=== PATIENT | male | born 1980 | race Caucasian/White ===

== ENCOUNTER → 2018-06-29 | Outpatient (CLI) | payer BC ==
--- NOTE | 2018-06-30 19:15 | PCVCIMAG ---
APPROVED REPORT Study performed: 06/29/2018 13:43:59 Exam: Stress Echocardiogram Indication: Dyspnea, palpitations, fatigue Patient Location: Echo lab Stress Nurse: Roberta Covington RN Status: routine Ht: 5 ft 10 in HR: 92 bpm BP: 128/70 mmHg Rhythm: NSR Procedure The patient underwent an Exercise Stress Test using the Eric Protocol. Blood pressure, heart rate, and EKG were monitored. An Echocardiogram was performed by diploma pharmacy technician in four stages in quad fashion. At peak stress, four selected images were obtained and placed side by side with resting images for comparison. Stress Test Details Stress Test: Exercise stress testing was performed using a Eric protocol. HR Resting HR: 92 bpmMax Heart Rate (APMHR): 180 bpm Max HR Achieved: 181 bpmTarget HR (85% APMHR): 153 bpm % of APMHR: 100 Recovery HR: 115 bpm HR response to stress: Normal HR response to stress BP Resting BP: 128/70 mmHg Max BP: 176/80 mmHg Recovery BP: 128/62 mmHg BP response to stress: Normal blood pressure response to stress. ECG Resting ECG: Sinus Rhythm, incomplete right bundle branch block Stress ECG: Sinus Rhythm ST Change: Normal Maximum ST Deviation: 0 mm Arrhythmia: PVCs and one 6 beat simona of V-tachycardia Recovery ECG: Sinus Rhythm Recovery ST Change: Normal Recovery ST Deviation: 0 mm Recovery Arrhythmia: None Clinical Reason for Termination: Maximal effort, Dyspnea Stress Symptoms: Dyspnea, palpitations Exercise duration: 12 min sec Highest Stage Achieved: Stage 4: 4.2 mph at 16% grade. Exercise capacity: 13.4 METs Overall Exercise Capacity for Age: Good Scale: Active Angina Score: None Stress ECG Conclusion Clinical: Non-ischemic ECG: Non-ischemic Melendez Treadmill Score is 12.0 which is Low risk. Pre-Stress Echo The resting Echocardiogram showed normal left ventricular contractility with an estimated Ejection Fraction of about >55%. Normal wall motion in all segments on baseline images. Post-Stress Echo The stress Echocardiogram showed normal left ventricular contractility with an estimated Ejection Fraction of about 65%. Normal augmentation of wall motion in all segments on post stress images. Clinical No clinical evidence for ischemia. Conclusion Clinical Response: Non-ischemic Exercise Capacity: Superior Stress ECG Response: Non-ischemic Stress Echo Images: Non-ischemic The left ventricle is normal in size and wall thickness in both the rest and stress images. Normal stress echocardiogram with maximal exercise stress. 6 beat simona of ventricular tachycardia with excersise Consider suppressive therapy with beta blockade Consider MRI imaging of the heart for right ventricular dysplasia Other Information Study Quality: Adequate <Conclusion> The left ventricle is normal in size and wall thickness in both the rest and stress images. Normal stress echocardiogram with maximal exercise stress. 6 beat simona of ventricular tachycardia with excersise Consider suppressive therapy with beta blockade Consider MRI imaging of the heart for right ventricular dysplasia
== END | disposition home or self-care (01) ==
LOC: PCVCIMAG 13:56
PROVIDERS: ATTEND Podiatrist Foot & Ankle Surgery
DX: R00.2 Palpitations (principal); R53.83 Other fatigue; R06.09 Other forms of dyspnea
CPT/HCPCS: 93325; 93351